=== PATIENT | female | born 1980 | race African-American/Black ===

== ENCOUNTER 2017-12-02 10:16 | Inpatient (IN) | payer MEDICAID ==
[~2017-12-02] VITALS: Ht 170.2 cm; Wt 104.3 kg
[2017-12-02] MEDS ORDERED: MISOPROSTOL 100MCG TABLET VG SCH (10:45)
[2017-12-02] MEDS ORDERED: METHYLERGONOVINE MALEATE 0.2 MG/ML IM PRN (10:45)
[2017-12-02] MEDS ORDERED: DEXT 5%/LR + PITOCIN 20UNITS/L 1,000 ML IV SCH ×2 (10:45→23:50)
[2017-12-02] MEDS ORDERED: CARBOPROST TROMETHAMINE 250 MCG/ML AMPUL IM PRN (10:45)
[2017-12-02] MEDS ORDERED: NALOXONE HCL 0.4 MG/ML 1ML VIAL IM PRN (10:45)
[2017-12-02 11:29] LABS: INR 0.9; PARTIAL THROMBOPLASTIN TIME 26.8 sec (23.4-31.0); PROTHROMBIN TIME 9.7 sec (9.4-11.6)
[2017-12-02] MEDS: LACTATED RINGERS 1,000 ML IV SCH ×3 (11:34→12:45)
[2017-12-02 11:45] LABS: HEMATOCRIT. 31.2 % (36.0-48.0); HEMOGLOBIN. 9.8 g/dL (12.0-16.0); MEAN CORPUSCULAR VOLUME 66.7 fL (81.0-99.0); MEAN PLATELET VOLUME 8.4 fl (7.4-10.4); PLATELET 234 x1000/uL (130-400); RED BLOOD CELL COUNT 4.68 mill/uL (4.2-5.4); RED CELL DISTRIBUTION WIDTH 17.3 % (11.6-14.6)
[2017-12-02 11:55] LABS: HEPATITIS B SURFACE ANTIGEN NEGATIVE; RUBELLA IGG 247.6 IU/mL (4.99-10)
[2017-12-02] MEDS ORDERED: FENTANYL CITRATE/PF 50MCG/ML 2ML VIAL ONE ×2 (11:55→13:01)
[2017-12-02] MEDS ORDERED: BUPIVACAINE HCL/PF 0.25% (2.5MG/ML) 10ML ONE ×2 (11:57→17:43)
[2017-12-02] MEDS ORDERED: ONDANSETRON HCL 4MG/2ML VIAL ONE (12:19)
[2017-12-02] MEDS ORDERED: LIDOCAINE HCL/PF 2% 20MG/ML 5 ML/VIAL ONE (12:37)
[2017-12-02] MEDS ORDERED: GLYCOPYRROLATE 0.2 MG/ML 2ML VIAL ONE (12:56)
[2017-12-02] MEDS ORDERED: PHENYLEPHRINE HCL 10 MG/ML 1ML (IV VIAL) IV ONE (12:56)
[2017-12-02] MEDS ORDERED: EPHEDRINE SULFATE 50MG/ML VIAL ONE (12:56)
[2017-12-02] MEDS ORDERED: OXYTOCIN 10 UNITS/ML 1ML ONE ×2 (13:00→22:44)
[2017-12-02] MEDS ORDERED: MORPHINE SULFATE/PF 1MG/ML 10ML AMP ONE (13:01)
[2017-12-02 13:06] LABS: ATYPICAL LYMPHOCYTES 1; PLATELET ESTIMATE NORMAL
[2017-12-02] MEDS ORDERED: LACTATED RINGERS 1,000 ML IV SCH (13:15)
[2017-12-02] MEDS ORDERED: CLINDAMYCIN 900 MG in DEXTROSE 5% WATER 50 ML IV NR (13:30)
[2017-12-02] MEDS ORDERED: BUPIVACAINE HCL/NS/PF EPIDURAL 100 ML EP ONE (14:08)
[2017-12-02 15:34] LABS: CLARITY URINE CLEAR (CLEAR); COLOR URINE YELLOW (YELLOW); KETONES URINE 3+ (NEGATIVE); LEUKOCYTE ESTERASE URINE NEGATIVE (NEGATIVE); NITRITE URINE NEGATIVE (NEGATIVE); OCCULT BLOOD URINE TRACE (NEGATIVE); PROTEIN URINE TRACE (NEGATIVE); SPECIFIC GRAVITY URINE 1.021 (1.005-1.030)
[2017-12-02 15:50] LABS: *AMPHETAMINES SCREEN URINE NEGATIVE (NEGATIVE)
[2017-12-02 15:51] LABS: *BARBITURATES SCREEN URINE NEGATIVE (NEGATIVE); *BENZODIAZEPINES SCREEN URINE NEGATIVE (NEGATIVE); *COCAINE SCREEN URINE NEGATIVE (NEGATIVE); CANNABINOID URINE SCREEN NEGATIVE (NEGATIVE); METHADONE URINE SCREEN NEGATIVE (NEGATIVE); OPIATES URINE SCREEN NEGATIVE (NEGATIVE); PHENCYCLIDINE URINE SCREEN NEGATIVE (NEGATIVE)
[2017-12-02] MEDS ORDERED: METOCLOPRAMIDE HCL 10MG/2ML VIAL ONE (17:43)
[2017-12-02] MEDS ORDERED: CITRIC ACID/SODIUM CITRATE SOLN 30ML UDC PO NR (17:45)
[2017-12-02] MEDS ORDERED: LIDOCAINE HCL/PF 1% 10 MG/ML 5ML VIAL ONE (20:33)
[2017-12-02] MEDS ORDERED: DIPHENHYDRAMINE 50MG/ML VIAL IV PRN (23:15)
[2017-12-02] MEDS ORDERED: NALOXONE HCL 0.4 MG/ML 1ML VIAL IV PRN (23:15)
[2017-12-02] MEDS ORDERED: BUTORPHANOL TARTRATE 2 MG/ML VIAL IV PRN (23:15)
[2017-12-03] VITALS (7 sets, daily range): BP systolic 98–115; BP diastolic 50–74
[2017-12-03] MEDS ORDERED: LANOLIN OINT 0.25 GM TUBE TOP PRN
[2017-12-03] MEDS ORDERED: DIPHENHYDRAMINE 25MG CAPSULE PO PRN
[2017-12-03] MEDS ORDERED: ONDANSETRON HCL 4MG/2ML VIAL IV PRN
[2017-12-03] MEDS: KETOROLAC 30MG/ML VIAL IV PRN ×2 (00:33→11:31)
[2017-12-03] MEDS: PRENATAL VIT/FE FUMARATE/FA TABLET PO SCH (09:04)
[2017-12-03] MEDS: SIMETHICONE 80MG TABLET CHEW PO SCH ×4 (09:04→21:48)
[2017-12-03] MEDS: MAGNESIUM/ALUMINUM HYDROXIDE/SIMETHICONE 30ML UDC PO SCH ×4 (09:04→21:48)
[2017-12-03 10:26] LABS: BASOPHILS % 0.2 % (0.0-2.0); HEMATOCRIT. 28.8 % (36.0-48.0); HEMOGLOBIN. 8.8 g/dL (12.0-16.0); LYMPHOCYTES % 7.5 % (20.0-50.0); MEAN CORPUSCULAR HEMOGLOBIN 20.7 pg (28.0-32.0); MEAN CORPUSCULAR VOLUME 67.9 fL (81.0-99.0); MEAN PLATELET VOLUME 8.2 fl (7.4-10.4); MONOCYTES % 6.6 % (2.0-8.0); NEUTROPHILS % 85.7 % (40.0-76.0); PLATELET 207 x1000/uL (130-400); RED BLOOD CELL COUNT 4.23 mill/uL (4.2-5.4); RED CELL DISTRIBUTION WIDTH 16.7 % (11.6-14.6)
[2017-12-03] MEDS ORDERED: TETANUS, DIPHTHERIA, PERTUSSIS VAC/PF 0.5ML (>7YR OLD) IM ONE (12:00)
[2017-12-03] MEDS: FERROUS SULFATE 325MG TABLET PO SCH ×2 (13:13→17:28)
[2017-12-03] MEDS: HYDROCODONE/ACETAMINOPHEN 5/325MG TABLET PO PRN (20:02)
[2017-12-03] MEDS: DOCUSATE SODIUM 100MG CAPSULE PO SCH (21:48)
[2017-12-04] VITALS: BP 112/78
[2017-12-04] MEDS: HYDROCODONE/ACETAMINOPHEN 5/325MG TABLET PO PRN ×4 (03:53→22:04)
[2017-12-04 03:58] VITALS: BP 124/81
[2017-12-04 07:32] VITALS: BP 108/56
[2017-12-04] MEDS: MAGNESIUM/ALUMINUM HYDROXIDE/SIMETHICONE 30ML UDC PO SCH ×4 (08:10→22:02)
[2017-12-04] MEDS: SIMETHICONE 80MG TABLET CHEW PO SCH ×4 (08:11→22:02)
[2017-12-04] MEDS: BISACODYL 10MG SUPP PR PRN (08:11)
[2017-12-04] MEDS: PRENATAL VIT/FE FUMARATE/FA TABLET PO SCH (08:11)
[2017-12-04] MEDS: FERROUS SULFATE 325MG TABLET PO SCH ×3 (08:11→18:02)
[2017-12-04] MEDS: IBUPROFEN 400MG TABLET PO PRN (13:02)
[2017-12-04 16:14] VITALS: BP 113/71
[2017-12-04 20:00] VITALS: BP 138/88
[2017-12-04] MEDS ORDERED: MEDROXYPROGESTERONE ACETATE 150MG/ML VIAL IM NR (20:00)
[2017-12-04] MEDS: DOCUSATE SODIUM 100MG CAPSULE PO SCH (22:03)
[2017-12-04 23:30] VITALS: BP 119/76
[2017-12-05] MEDS: HYDROCODONE/ACETAMINOPHEN 5/325MG TABLET PO PRN (03:22)
[2017-12-05 08:00] VITALS: BP 121/86
[2017-12-05] MEDS: PRENATAL VIT/FE FUMARATE/FA TABLET PO SCH (09:27)
[2017-12-05] MEDS: FERROUS SULFATE 325MG TABLET PO SCH ×2 (09:27→13:55)
[2017-12-05] MEDS: SIMETHICONE 80MG TABLET CHEW PO SCH ×2 (09:27→13:55)
[2017-12-05] MEDS: MAGNESIUM/ALUMINUM HYDROXIDE/SIMETHICONE 30ML UDC PO SCH ×2 (09:27→13:55)
[2017-12-05] MEDS: BISACODYL 10MG SUPP PR PRN (11:32)
[2017-12-05] MEDS: IBUPROFEN 400MG TABLET PO PRN (11:32)
[2017-12-05 12:00] VITALS: BP 123/90
== END 2017-12-05 14:20 | disposition home or self-care (01) | DRG 540 ==
LOC: L&D 10:16 → OBSVTOIN 10:16 → L&D 11:35 → 7EST PP/OB 12-03 01:20
PROVIDERS: ADMIT Specialist; ATTEND Specialist
PROC: 10D00Z1 Extraction of Products of Conception, Low, Open Approach (ICD-10-PCS; principal; 2017-12-02)
DX: O34.211 Maternal care for low transverse scar from previous cesarean delivery (principal); O98.82 Other maternal infectious and parasitic diseases complicating childbirth; E66.9 Obesity, unspecified; O24.420 Gestational diabetes mellitus in childbirth, diet controlled; B37.9 Candidiasis, unspecified; O99.214 Obesity complicating childbirth; O34.13 Maternal care for benign tumor of corpus uteri, third trimester; D25.9 Leiomyoma of uterus, unspecified; K21.9 Gastro-esophageal reflux disease without esophagitis; O99.62 Diseases of the digestive system complicating childbirth; D64.9 Anemia, unspecified; R77.2 Abnormality of alphafetoprotein; O99.89 Other specified diseases and conditions complicating pregnancy, childbirth and the puerperium; O99.02 Anemia complicating childbirth; O21.0 Mild hyperemesis gravidarum; Z83.3 Family history of diabetes mellitus; Z82.5 Family history of asthma and other chronic lower respiratory diseases; Z3A.39 39 weeks gestation of pregnancy; Z37.0 Single live birth; Z88.0 Allergy status to penicillin; Z82.49 Family history of ischemic heart disease and other diseases of the circulatory system; O09.523 Supervision of elderly multigravida, third trimester
CPT/HCPCS: 36415; 80305; 81003; 85025; 85610; 85730; 86592; 86703; 86762; 86850; 86900; 87070; 87205; 87340; J1050; J1885; J2274; J2370; J2405; J2590; J2765; J3010; J3490; J7060; J7120; A4315